=== PATIENT | male | born 1990 | race Caucasian/White ===

== ENCOUNTER 2021-12-25 13:51 | Outpatient (RCR) | payer OTHER | END 2022-01-14 | disposition home or self-care (01) | LOC: PT | DX: M54.10 Radiculopathy, site unspecified (principal) | CPT/HCPCS: G0283-GP ==

== ENCOUNTER → 2022-01-31 | Outpatient (CLI) | payer OTHER | LOC: RAD 12:00 | DX: M51.27 Other intervertebral disc displacement, lumbosacral region (principal); M48.07 Spinal stenosis, lumbosacral region ==